=== PATIENT | male | born 1990 | race Caucasian/White ===

== ENCOUNTER 2022-06-13 06:58 | Emergency (ER) | payer OTHER ==
[~2022-06-13] VITALS: Ht 162.6 cm; Wt 83.2 kg
[2022-06-13 07:05] VITALS: BP 141/112; TEMP 97.9
[2022-06-13] MEDS ORDERED: MEDROL 4MG DOSPA4 MG PO (08:27)
[2022-06-13 08:50] VITALS: PULSE 100
== END 2022-06-13 08:50 | disposition home or self-care (01) ==
LOC: COL.ER 06:58
DX: M54.16 Radiculopathy, lumbar region (principal)
CPT/HCPCS: J1885